=== PATIENT | male | born 1965 | race Caucasian/White ===

== ENCOUNTER → 2018-12-27 10:03 | Outpatient (CLI) | payer OTHER, SELFPAY | PROVIDERS: Family Provider Family Medicine; PCP Family Medicine; Referring Provider Otolaryngology; Visit Provider Otolaryngology | DX: Z01.818 Encounter for other preprocedural examination (principal) ==

== ENCOUNTER 2019-02-14 17:00 | Outpatient (RCR) | payer OTHER, SELFPAY ==
--- NOTE | 2019-01-20 18:37 | HP.PTEVAL_ITS ---
Patient's Visit Information TICO DICKEY is a 54 year old M referred to Physical Therapy by PRABHU BABCOCK with a diagnosis of CERVICAL RADICULOPATHY. Date of Evaluation: 01/20/19 Physical Therapist: Elian Daigle, PT, Cert MDT, OCS - Visit Plan Frequency: 2x /Week Duration: 6 Weeks Plan: INITIALLY MODALTIES PROGRESS ABLE CERVICAL ROM/POSTURAL EX'S,MANUAL THERAPY - Subjective Findings: This 54 y/o male presents to physical therapy with cervical radiculopathy.Symptoms started about 4 weeks inscidous onset with intially burning pain between shoulder blades then caused radicular symptoms lateral deltoid to foearm.Patient seen DR Babcock recommended MEDS . Recommended PT. Pateint has had h/o cervical pain 20 years ago. Patient has parathesia/tingling 02/04. Denies MCCRAY/tinnutus/dizziness nausea. Patient symptoms affects sleeping. Patient has had prior PT. Agravating factors sitting ,driving,computer,turning.Aleviating heat/MEDS. Patient symptoms affect ablitity to perform job demnads/ADL'S.Pateint cervical pain affects QOL. SOCIAL: . [employer]ATION: [employer] - Pain Right Neck Pain Intensity (Out of 10): 4 Pain Intensity Range: 10 Right Shoulder Pain Intensity (Out of 10): 4 Pain Intensity Range: 10 - Objective POSTURE: foward head rounded shoulders. PALAPTION: unremarkable. NEURO: c/o parathesia/tingling RUE,light touch intact,reflexes C5-6-7 1/3. MMT: BUE 4/5. [employer] STRENGTH: 100# dynamator. AROM: BUE WFL. CERVICL ROM: flexion min loss,extension ,lateral flexion,rotation mod loss,retraction mod loss - Special Tests C/S Radiculapathy - Left Upper limb tension test: Negative C/S Radiculapathy - Right Upper limb tension test: Negative C/S Radiculapathy - Left Spurlings: Negative C/S Radiculapathy - Right Spurlings: Positive C/S Radiculapathy - Left Cervical distraction: Positive C/S Radiculapathy - Left Relief test: Positive C/S Radiculapathy - Right Relief test: Positive Sharp Ronit: Negative Vertebral Artery Test: Negative Alar Ligament Test: Negative Cervical Sitting: Protrusion - Mechanical Response: No effect Cervical Sitting: Protrusion - Symptoms During Testing: Increases Cervical Sitting: Protrusion - Symptoms After Testing: No worse Cervical Sitting: Retraction - Mechanical Response: No effect Cervical Sitting: Retraction - Symptoms During Testing: Increases Cervical Sitting: Retraction - Symptoms After Testing: Worse Cervical Sitting: Retraction-Extension - Mechanical Response: No effect Cerv Sitting: Retraction-Extension - Symptoms During Testing: Abolishes Cerv Sitting: Retraction-Extension - Symptoms After Testing: Worse Cervical Sitting: Sidebend Right - Mechanical Response: No effect Cervical Sitting: Sidebend Right - Symptoms During Testing: Increases Cervical Sitting: Sidebend Right - Symptoms After Testing: Worse Cervical Sitting: Sidebend Left - Mechanical Response: No effect Cervical Sitting: Sidebend Left - Symptoms During Testing: Decreases Cervical Sitting: Sidebend Left - Symptoms After Testing: Better - Goals Goal 1:: Independant with HEP. Goal Time Frame: 4-6 Weeks Goal 2:: Patient Independant with posture for ADL'S Goal Time Frame: 4-6 Weeks Goal 3:: Patient to decrease cervical pain by 50% or greater to improve function with ADL'S Goal Time Frame: 4-6 Weeks Goal 4:: Patient to improve cervical ROM for function of recovery Goal Time Frame: 4-6 Weeks Goal 5:: Patient to improve cervical GAY score by 5 points or greater to improve function. Goal Time Frame: 4-6 Weeks - Rehabilitation Potential Physical Therapy Diagnosis: This patient has cervical radiculopathy with possible derrangement with disc involvemnt /stenosis with pain in arm ,affected by postion and movement. Symptoms affects function ADL's and job demands. Rehabilitation Potential: Good - Anticipated Interventions Patient/Client Instruction: Educate patient on: Condition, Plan of Care For the Purpose of:: To decrease pain, To increase ROM, To improve muscle performance and motor function, To increase tolerance to activity/condition/position, To improve performance and independence with ADL's, To improve ability of physical actions for home/community/work/leisure, To improve health of tissue, To decrease soft tissue restriction, To increase flexibility/ROM, To improve ability to perform tasks related to life management Therapeutic Exercise to Include: Strength training, Postural training, Flexibilty training, Active ROM, Miguel Exercises For the Purpose of:: To decrease pain, To increase ROM, To improve muscle performance and motor function, To improve ability of physical actions for home/ community/work/leisure, To improve health of tissue, To decrease soft tissue restriction, To increase flexibility/ROM, To improve ability to perform tasks related to life management Manual Therapy Techniques to Include: Mobilization Comment: CERVICAL For the Purpose of:: To decrease pain, To increase ROM TENS: Yes IF ES: Yes Cryotherapy (ice pack, ice massage): Yes Thermo therapy (hot pack): Yes Ultrasound (thermal/non thermal): Yes For the Purpose of:: To decrease pain, To increase ROM, To improve nutrient delivery to tissue, To increase oxygenation perfusion, To decrease soft tissue restriction, To increase flexibility/ROM Thank you for the opportunity to evaluate your patient. For Medicare and Medicare HMO plans, please review the plan of care and approve it. It will need to be FAXED BACK to us at [phone] for Medicare purposes. For Medicare only, by signing this I certify the plan of care. Please let me know if there are questions or concerns regarding this plan of care. Physician Signature: Date:
--- NOTE | 2019-06-01 10:35 | HP.PTDCSUM ---
HP - PT D/C Summary It has been my pleasure to treat TICO DICKEY under orders from PRABHU BABCOCK, for the diagnosis of CERVICAL RADICULOPATHY for a total of 7 visit(s). Discharge Date: Please see the following information for a summary of their discharge status. - Subjective Subjective: patient symptoms better with neck pain but parathesia/tingling same in arm. Patient plans to RTD for further diagnostics - Pain Right Neck Pain Intensity (Out of 10): 0 Right Shoulder Pain Intensity (Out of 10): 5 - Overall Improvement % Improvement: 40 - Objective Objective/Function: POSTURE: mild foward head protruded rounded shoulders. PALPATION: tender UT/LEVATO. NEURO: mytome weakness C6-7,C/O PARATHESIA LEFT ARM. CERVICAL ROM: flexion min loss,extension mod loss pain,lateral flexion,rotation od loss pain right side - Goals Goal 1:: Independant with HEP. Goal 2:: Patient Independant with posture for ADL'S Goal 3:: Patient to decrease cervical pain by 50% or greater to improve function with ADL'S Goal 4:: Patient to improve cervical ROM for function of recovery Goal 5:: Patient to improve cervical GAY score by 5 points or greater to improve function. - Plan Plan: RTD RCOMMEND POSSIBLE MRI - D/C Information If there are questions or concerns regarding this patient's physical therapy, please feel free to call me at [phone]. Thank you for the referral of this patient. Sincerely, Elian Daigle, PT, Cert MDT, OCS
== END 2019-02-14 19:00 | disposition home or self-care (01) ==
LOC: PT 17:00
PROVIDERS: Family Provider Family Medicine; PCP Family Medicine
DX: M54.12 Radiculopathy, cervical region (principal)
CPT/HCPCS: 97014; 97035; 97110; 97161; G0283